=== PATIENT | male | born 1975 | race Caucasian/White ===

== ENCOUNTER 2021-11-03 21:26 | Emergency (ER) | payer SELFPAY ==
[~2021-11-03] VITALS: Ht 175.3 cm; Wt 90.7 kg
--- NOTE | 2021-11-03 21:46 | NUR ---
AFTER BEING TRAIGED, PATIENT WAS PLACED IN HALLWAY DUE TO NO BEDS AVAILABLE IN THE ER.
[2021-11-03] MEDS ORDERED: SODIUM BICARBONATE 4.2 % (NEUT) 5 ML VIAL TP ONE (22:00)
[2021-11-03] MEDS ORDERED: LIDOCAINE 1%-EPI 1:100,000 20 ML VIAL IJ ONE (22:00)
--- NOTE | 2021-11-03 22:10 | NUR ---
Patient does not wish to proceed with medical care recommended by Dr. Lisandra CHILDRESS ). Patient given information related to possible complications, up to and including , which could occur as a result of leaving the hospital at this time. Patient verbalizes understanding of risks involved due to leaving against medical advice. Patient has signed AMA form.
--- NOTE | 2021-11-03 22:15 | NUR ---
After x ray was prformed. Patient eloped the facility.
== END 2021-11-03 22:15 | disposition left against medical advice (07) ==
LOC: ER 21:34
DX: S51.812A Laceration without foreign body of left forearm, initial encounter (principal); W25.XXXA Contact with sharp glass, initial encounter; Y92.89 Other specified places as the place of occurrence of the external cause; Z53.29 Procedure and treatment not carried out because of patient's decision for other reasons
CPT/HCPCS: 73090; A4663

== ENCOUNTER 2023-01-03 01:02 | Emergency (ER) | payer MEDICAID ==
[~2023-01-03] VITALS: Ht 188 cm; Wt 89.8 kg
--- NOTE | 2023-01-03 01:56 | NUR ---
Dr. Sun evaluating patient at bedside. MSE in progress.
--- NOTE | 2023-01-03 02:18 | NUR ---
Xray at bedside
[2023-01-03 02:28] LABS: MEAN CORPUSCULAR HEMOGLOBIN 31.1 uug (23.8-33.4); MEAN CORPUSCULAR VOLUME 92.7 fL (73.0-96.2); PLATELET COUNT (AUTO) 198 K/uL (152-348)
[2023-01-03 02:37] LABS: CARBON DIOXIDE 26 mmol/L (21-32); CHLORIDE 104 mmol/L (98-107); CREATININE 0.8 mg/dL (0.6-1.3); GLUCOSE 139 mg/dL (74-106); POTASSIUM 3.7 mmol/L (3.5-5.1); UREA NITROGEN, BLOOD 12 mg/dL (7-18)
[2023-01-03 02:46] LABS: ALANINE AMINOTRANSFERASE 39 U/L (16-63); ALKALINE PHOSPHATASE 48 U/L (50-136); ASPARTATE AMINOTRANSFERASE 16 U/L (15-37); BILIRUBIN,DIRECT 0.1 mg/dL (0.0-0.2); BILIRUBIN,TOTAL 0.2 mg/dL (0.2-1.0); LIPASE 125 U/L (73-393); TOTAL PROTEIN, SERUM 7.8 g/dL (6.4-8.2)
[2023-01-03] MEDS ORDERED: SWABABLE VALVE TRANSFER SET EA MC ONE (02:48)
[2023-01-03] MEDS ORDERED: IV NORMAL SALINE 250 ML IV ONE (02:48)
[2023-01-03] MEDS ORDERED: IOHEXOL 300MG/ML 100 ML INFUS..BTL ONE (02:48)
[2023-01-03] MEDS ORDERED: ONDANSETRON 4 MG/2 ML VIAL IV ONE (03:00)
[2023-01-03] MEDS ORDERED: HYDROMORPHONE 1 MG/1 ML DISP.SYRIN IV ONE ×2 (03:00→05:30)
[2023-01-03 03:01] LABS: *BILIRUBIN,URIN NEGATIVE (NEGATIVE); *BLOOD, URINE NEGATIVE (NEGATIVE); *CLARITY,URINE CLEAR (CLEAR); *COLOR,URINE YELLOW (YELLOW); *KETONES,URINE 1+ (NEGATIVE); *UROBILINOGEN,URINE 0.2 E.U./dl (NORMAL); LEUKOCYTE ESTERASE ,URINE NEGATIVE (NEGATIVE); NITRITE, URINE NEGATIVE (NEGATIVE)
[2023-01-03] MEDS ORDERED: ONDANSETRON 4 MG/2 ML VIAL ONE (03:12)
[2023-01-03] MEDS ORDERED: HYDROMORPHONE 1 MG/1 ML DISP.SYRIN ONE ×2 (03:13→05:22)
[2023-01-03 03:21] LABS: UGLUCOSE 2+ (NEGATIVE)
--- NOTE | 2023-01-03 03:22 | NUR ---
Patient taken to CT via [facility]velvet accompanied by
[2023-01-03 03:25] LABS: BACTERIA,URINE NONE SEEN /HPF (NONE SEEN); RBC,URINE NONE SEEN /HPF (0-3); SQUAMOUS EPITHELIAL CELL,UR FEW /HPF (NONE SEEN); URIC ACID CRYSTALS,URINE FEW /HPF (NONE SEEN); WBC,URINE NONE SEEN /HPF (0-3)
[2023-01-03] MEDS ORDERED: METR250T36 PO (05:50)
[2023-01-03] MEDS ORDERED: BLOO-1730 MC ×2 (05:50)
[2023-01-03 06:07] VITALS: BP 133/75
--- NOTE | 2023-01-03 06:07 | NUR ---
Patient discharged to home in stable condition. Written and verbal after care instructions given. Patient verbalizes understanding of instructions. Stressed follow up or return to ER for worsening s/s.
== END 2023-01-03 06:08 | disposition home or self-care (01) ==
LOC: ER 01:02 → EDBD 01:02 → ER 06:08
DX: K74.60 Unspecified cirrhosis of liver (principal); E11.9 Type 2 diabetes mellitus without complications; Z79.899 Other long term (current) drug therapy
CPT/HCPCS: 99285; 74177; 96374; 71045; 96375; 80076; 80048; 81001; 83036; 83690; 85025; 84484; 36415; 93005; 96376; J2405; Q9967; J1170 ×2; A4663